=== PATIENT | male | born 1995 | race African-American/Black ===

== ENCOUNTER 2018-05-29 23:35 | Emergency (ER) | payer OTHER ==
[~2018-05-29] VITALS: Ht 172.7 cm; Wt 97.5 kg
[2018-05-30] MEDS ORDERED: IBUPROFEN 400 MG TAB PO ONE
[2018-05-30] MEDS ORDERED: ACETAMINOPHEN 325 MG TAB PO ONE
[2018-05-30] MEDS ORDERED: IBUPROFEN400 MG PO (00:01)
[2018-05-30] MEDS ORDERED: BROMFED DM COU118 ML PO (00:01)
== END 2018-05-30 00:28 | disposition home or self-care (01) ==
LOC: FSED 23:35
DX: R05 Cough (principal); J00 Acute nasopharyngitis [common cold]
CPT/HCPCS: 99283

== ENCOUNTER 2018-08-07 14:20 | Outpatient (RCR) | payer OTHER ==
[~2018-08-07 14:20] MED LIST: BROMFED DM COU118 ML PO; IBUPROFEN400 MG PO
== END 2018-08-20 ==
LOC: OT 14:20
PROVIDERS: ATTEND Plastic Surgery
DX: S62.304D Unspecified fracture of fourth metacarpal bone, right hand, subsequent encounter for fracture with routine healing (principal)

== ENCOUNTER 2020-11-19 23:57 | Emergency (ER) | payer OTHER ==
[~2020-11-19] VITALS: Ht 172.7 cm; Wt 117.9 kg
[2020-11-20] MEDS ORDERED: PENICILLIN G BENZATHINE LA 1.2 MU TBX IM STA (00:28)
[2020-11-20] MEDS ORDERED: PENICILLIN G BENZATHINE LA 1.2 MU TBX ONE (00:38)
== END 2020-11-20 01:10 | disposition home or self-care (01) ==
LOC: FSED 11-20 00:26
DX: J02.0 Streptococcal pharyngitis (principal); R50.9 Fever, unspecified
CPT/HCPCS: 83518; 99282; J0561

== ENCOUNTER 2022-02-25 07:50 | Observation (INO) | payer OTHER ==
[2022-02-22 11:28] LABS: BASOPHILS % 0.4 % (0.0-1.0); EOSINOPHILS # (AUTO) 0.1 (0.0-0.4); EOSINOPHILS % 2.3 % (0.0-6.0); HEMATOCRIT 40.4 % (38.2-49.6); HEMOGLOBIN 13.4 g/dL (14.0-18.0); LYMPHOCYTES # (AUTO) 2.4 (1.0-3.2); LYMPHOCYTES % 44.5 % (18.0-39.1); MEAN CORPUSCULAR HEMOGLOBIN 31.5 pg (28-32); MEAN CORPUSCULAR HGB CONC 33.2 g/dL (31-35); MEAN CORPUSCULAR VOLUME 95.1 fL (81-99); MONOCYTES # (AUTO) 0.4 (0.2-0.8); MONOCYTES % 7.2 % (4.4-11.3); NEUTROPHILS # (AUTO) 2.4 (2.1-6.9); NEUTROPHILS % 45.4 % (38.7-80.0); PLATELET COUNT 285 x10e3/uL (140-360); RED BLOOD COUNT 4.25 x10e6/uL (4.3-5.7); RED CELL DISTRIBUTION WIDTH 12.5 % (11.7-14.4)
[2022-02-22 11:38] LABS: INR 1.01; PROTHROMBIN TIME 14.2 seconds (11.9-14.5)
[2022-02-22 11:39] LABS: PARTIAL THROMBOPLASTIN TIME 29.9 seconds (23.8-35.5)
[2022-02-22 11:47] LABS: ANION GAP 12.4 mmol/L (8-16); CALCIUM 9.6 mg/dL (8.4-10.2); CREATININE, SERUM 0.99 mg/dL (0.72-1.25); POTASSIUM 4.4 mmol/L (3.5-5.1)
[~2022-02-25] VITALS: Ht 172.7 cm; Wt 112.0 kg
[~2022-02-25 07:50] MED LIST changes: +LIDOCAINE 1% W/EPINEPHRINE 20 ML VIAL ONE; +SODIUM CHLORIDE 0.9% 50ML 100 ML ONE; +THROMBIN FOR SOLN 5,000 UNIT VIAL ONE; +Vancomycin IV 1 GM VIAL ONE
[2022-02-25] MEDS ORDERED: HYDROCODON-ACE1 EA12 PO (10:10)
[2022-02-25] MEDS ORDERED: HYDROMORPHONE 2MG/ML 2 MG/ML ML IV PRN (10:15)
[2022-02-25] MEDS ORDERED: PROMETHAZINE HCL (IM) 25 MG/ML VIAL IM PRN (10:15)
[2022-02-25] MEDS ORDERED: ONDANSETRON HCL INJ 2MG/ML 2ML 2 MG/ML VIAL IV PRN (10:15)
[2022-02-25] MEDS ORDERED: ACETAMINOPHEN 325 MG TAB PO PRN (10:15)
[2022-02-25] MEDS ORDERED: MAGNESIUM/ALUMINUM/SIMETHICONE 30 ML UDC PO PRN (10:15)
[2022-02-25] MEDS ORDERED: FENTANYL CITRATE/PF 100MCG/2 ML INJ ONE (11:30)
[2022-02-25] MEDS ORDERED: ACETAMINOPHEN 1000 MG/100 ML IV ONE (12:17)
[2022-02-25] MEDS ORDERED: EPHEDRINE SULFATE INJ 50 MG/ML VIAL ONE (12:17)
[2022-02-25] MEDS ORDERED: IBUPROFEN 800 MG/200 ML BAG IV ONE (12:17)
[2022-02-25] MEDS ORDERED: ROCURONIUM BROMIDE 10 MG/ML 5ML VIAL IV ONE (12:17)
[2022-02-25] MEDS ORDERED: POVIDONE IODINE 0.05% 0.05 % ML PO ONE (12:17)
[2022-02-25] MEDS ORDERED: PROPOFOL IV EMULSION 10 MG/ML 20 ML VIAL ONE (12:17)
[2022-02-25] MEDS ORDERED: ONDANSETRON HCL INJ 2MG/ML 2ML 2 MG/ML VIAL ONE (12:17)
[2022-02-25] MEDS ORDERED: SUGAMMADEX SODIUM 200 MG/2 ML VIAL IV ONE (12:17)
[2022-02-25] MEDS ORDERED: LIDOCAINE HCL 2% LOCAL INJ 5 ML SDV VIAL INJ ONE (12:17)
[2022-02-25] MEDS ORDERED: SEVOFLURANE INHAL SOLN 250 ML PEN BTL ONE (12:17)
[2022-02-25] MEDS ORDERED: DEXAMETHASONE SOD PHOS INJ 4 MG/ML SDV ONE (12:17)
[2022-02-25 12:40] VITALS: BP 122/56
[2022-02-25 12:43] VITALS: BP 122/56
[2022-02-25 12:47] VITALS: BP 122/56
[2022-02-25] MEDS: OXYCODONE/ACETAMINOPHEN 5-325 1 EACH TABLET PO PRN ×2 (13:49→20:25)
[2022-02-25] MEDS: CARISOPRODOL 350 MG TAB PO PRN ×2 (13:49→20:25)
[2022-02-25] MEDS: Cefazolin 1 GM in SODIUM CHLORIDE 0.9% 50ML 50 ML IV SCH (15:06)
[2022-02-25] MEDS: LACTATED RINGER'S 1,000 ML IV SCH ×2 (15:06→18:35)
[2022-02-25 16:15] VITALS: BP 120/74
[2022-02-25 20:00] VITALS: BP 120/74
[2022-02-25 20:55] VITALS: BP 132/70
[2022-02-25] MEDS ORDERED: ZOLPIDEM TARTRATE 5 MG TAB PO PRN (21:00)
[2022-02-25] MEDS: MORPHINE SULFATE 5 MG/ML VIAL IM PRN (22:46)
[2022-02-26] VITALS: BP 127/54
[2022-02-26 04:00] VITALS: BP 128/59
[2022-02-26] MEDS: LACTATED RINGER'S 1,000 ML IV SCH (04:03)
[2022-02-26] MEDS: MORPHINE SULFATE 5 MG/ML VIAL IM PRN (04:03)
[2022-02-26 08:00] VITALS: BP 117/48
[2022-02-26] MEDS: OXYCODONE/ACETAMINOPHEN 5-325 1 EACH TABLET PO PRN (08:45)
[2022-02-26] MEDS: Cefazolin 1 GM in SODIUM CHLORIDE 0.9% 50ML 50 ML IV SCH ×3 (08:45)
[2022-02-26 09:18] VITALS: BP 117/48
== END 2022-02-26 10:28 | disposition home or self-care (01) ==
LOC: OR 07:50 → PACU V 11:27 → MED/SURG 12:18
PROVIDERS: ADMIT Neurological Surgery; ATTEND Neurological Surgery
DX: M51.16 Intervertebral disc disorders with radiculopathy, lumbar region (principal); Z20.822 Contact with and (suspected) exposure to COVID-19; Z01.818 Encounter for other preprocedural examination
CPT/HCPCS: 36415; 63047; 71046; 72020; 80048; 85025; 85610; 85730; 86850; 86900; 88304; 88311; 93005; G0378 ×2; J0690 ×2; J2270 ×2; J2405 ×2; J3010; J3370; J7121; U0002; J1100; J2001

== ENCOUNTER 2022-03-15 08:00 | Outpatient (RCR) | payer OTHER ==
[~2022-03-15 08:00] MED LIST changes: +HYDROCODON-ACE1 EA12 PO; -LIDOCAINE 1% W/EPINEPHRINE 20 ML VIAL ONE; -SODIUM CHLORIDE 0.9% 50ML 100 ML ONE; -THROMBIN FOR SOLN 5,000 UNIT VIAL ONE; -Vancomycin IV 1 GM VIAL ONE
== END 2022-03-20 ==
LOC: PT 08:00
PROVIDERS: ATTEND Neurological Surgery
DX: M51.16 Intervertebral disc disorders with radiculopathy, lumbar region (principal); M54.50 Low back pain, unspecified; M62.81 Muscle weakness (generalized)

== ENCOUNTER 2022-04-08 09:00 | Outpatient (RCR) | payer OTHER | END 2022-04-20 | LOC: PT 09:00 | PROVIDERS: ATTEND Neurological Surgery | DX: M51.16 Intervertebral disc disorders with radiculopathy, lumbar region (principal); M62.81 Muscle weakness (generalized) | CPT/HCPCS: 97139 ==

== ENCOUNTER 2022-10-02 00:10 | Emergency (ER) | payer SELFPAY ==
[~2022-10-02] VITALS: Ht 172.7 cm; Wt 112.0 kg
[2022-10-02] MEDS ORDERED: CLEOCIN HCL300 MG PO (00:49)
[2022-10-02] MEDS ORDERED: CEPHALEXIN MONOHYDRATE 250 MG CAP ONE (01:06)
== END 2022-10-02 01:17 | disposition home or self-care (01) ==
LOC: FSED 00:34
DX: R10.31 Right lower quadrant pain (principal); L03.314 Cellulitis of groin
CPT/HCPCS: 99282